=== PATIENT | male | born 1965 | race Caucasian/White ===

== ENCOUNTER 2019-10-25 11:29 | Emergency (ER) | payer MEDICAID, SELFPAY ==
[~2019-10-25] VITALS: Ht 177.8 cm; Wt 93.2 kg
[2019-10-25] MEDS ORDERED: BOOSTRIX/ADACEL VACCINE (DIPHTH/PERTUSS/ACELL/TETANUS) 0.5ML SYR IM ONE (12:00)
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
[2019-10-25] MEDS ORDERED: LIDOCAINE W/EPINEPHRINE 1% 20ML VIAL SC ONE (12:15)
[2019-10-25] MEDS ORDERED: BUPIVACAINE HCL 0.5% 10ML VIAL SC ONE (12:15)
[2019-10-25] MEDS ORDERED: NS 1,000 ML IV SCH (14:30)
[2019-10-25] MEDS ORDERED: ceFAZolin SOD 1 GM in D5W MINI-BAG PLUS 50 ML IV ONE (14:30)
[2019-10-25 17:49] VITALS: BP 164/80
--- NOTE | 2019-11-07 15:25 | ER ---
DATE: 10/25/2019 CHIEF COMPLAINT: Left distal forearm laceration. HISTORY OF PRESENT ILLNESS: This 54-year-old man, right-hand dominant, sustained a laceration on a circular saw on the dorsal of his forearm. He was reaching underneath transversely on the dorsum of the forearm. He is nothing by mouth since 6:30 in the morning, when he drank a soda. No previous injuries. He got a tetanus short in the emergency department. His last tetanus was about 25 years ago. MEDICAL HISTORY: None.. MEDICATIONS: None. ALLERGIES: No known drug allergies. SURGICAL HISTORY: Root canal. SOCIAL HISTORY: He is self-employed. Runs a margo. This happened at work, although he is self-employed. Does not smoke and does not intravenous drugs. PHYSICAL EXAMINATION: Shows a 54-year-old man. Vital signs are stable. He has a large, 3-1/2 inch long transverse laceration in the mid aspect of the left forearm. Hand is warm and well perfused. Normal sensation to median, radial, and ulnar nerves. Strong radial pulse. Forearm compartments are soft. This appears to be a very deep laceration involving the muscle bellies. His middle and ring finger are sitting in flexion. Unable to extend them or hold them against gravity. Index and 5th digit he is able to extend against gravity. He is unable to extend his wrist. He has extensor carpi ulnaris (ECU) function, but extensor carpi radialis longus (ECRL)/extensor carpi radialis brevis (ECRB) appear to be nonfunctional. He can flex and extend to the tip of his thumb but is not able to lift the thumb off the bed with the hand flat. Radiographs were reviewed. AP and lateral were performed. No obvious fracture. ASSESSMENT AND PLAN: This is a 54-year-old man with a complex laceration to the dorsal forearm with a circular saw. He likely lacerated the tendons and/or muscle belly to the middle and ring fingers. He also has a wrist drop. He could have lacerated the ECRL muscle belly or tendon as well as the posterior interosseous nerve given his difficulties with thumb extension and with slight ulnar deviation with wrist extension and quite weak in terms of its extension. He would benefit from irrigation, debridement, and likely multiple tendon repair. This would be more appropriately undertaken by a hand surgeon in a tertiary care center. He may have also sustained an injury to the posterior osseous nerve, and this may need nerve grafting or nerve repair, so this would be better done in a large center, such as in [place]. As such, I have asked the emergency department physician to consider transfer. In the meantime, we will place white gauze over the top of the wound in preparation for transfer, and he has already received tetanus. EMMANUEL
== END 2019-10-25 17:50 | disposition short-term general hospital (02) ==
LOC: M ED 11:29
DX: S56.322A Laceration of extensor or abductor muscles, fascia and tendons of left thumb at forearm level, initial encounter (principal); W27.0XXA Contact with workbench tool, initial encounter; Y92.099 Unspecified place in other non-institutional residence as the place of occurrence of the external cause; Y93.9 Activity, unspecified; Y99.9 Unspecified external cause status
CPT/HCPCS: 36415; 73090; 90471; 90715; 96361; 96365; 99284; J0690

== ENCOUNTER → 2020-01-15 | Outpatient (REF) | payer OTHER ==
[2020-01-15 12:28] LABS: ALBUMIN 3.9 GM/DL (3.2-5.2); ALT/SGPT 40 U/L (12-78); BILIRUBIN,TOTAL 0.5 MG/DL (0.2-1.0); BLOOD UREA NITROGEN 19 MG/DL (7-18); CALCIUM LEVEL 8.7 MG/DL (8.5-10.1); CARBON DIOXIDE LEVEL 29 MEQ/L (21-32); CHLORIDE LEVEL 104 MEQ/L (98-107); CHOLESTEROL LEVEL 276 MG/DL (<200); CREATININE FOR GFR 0.89 MG/DL (0.70-1.30); GLOMERULAR FILTRATION RATE > 60.0 (>56); GLUCOSE, FASTING 99 MG/DL (70-100); HDL CHOLESTEROL 50 MG/DL (>40); NON-HDL-C 226 MG/DL; POTASSIUM SERUM 4.4 MEQ/L (3.5-5.1); SODIUM LEVEL 136 MEQ/L (136-145); TOTAL PROTEIN 6.9 GM/DL (6.4-8.2); TRIGLYCERIDES LEVEL 408 MG/DL (<150)
== END ==
LOC: M SFHCCLAY 08:30
PROVIDERS: ATTEND Family Medicine
DX: B35.1 Tinea unguium (principal); R03.0 Elevated blood-pressure reading, without diagnosis of hypertension; Z13.220 Encounter for screening for lipoid disorders

== ENCOUNTER → 2020-03-20 | Outpatient (REF) | payer OTHER ==
[2020-03-20 16:29] LABS: ALBUMIN 4.1 GM/DL (3.2-5.2); ALT/SGPT 34 U/L (12-78); BILIRUBIN,DIRECT < 0.1 MG/DL (0.0-0.2); BILIRUBIN,TOTAL 0.4 MG/DL (0.2-1.0)
== END ==
LOC: M SFHCCLAY 10:06
PROVIDERS: ATTEND Family Medicine
DX: B35.1 Tinea unguium (principal)

== ENCOUNTER → 2022-12-01 | Outpatient (REF) | payer OTHER ==
[2022-12-01 12:08] LABS: BASO # 0.1 10^3/uL (0.0-0.2); EOS # 0.1 10^3/uL (0.0-0.5); EOS % 1.9 % (0.0-3.0); HEMATOCRIT 44.5 % (42.0-52.0); HEMOGLOBIN 14.2 g/dl (13.5-17.5); LYMPH # 2.1 10^3/uL (1.5-5.0); LYMPH % 40.6 % (24.0-44.0); MEAN CORPUSCULAR HEMOGLOBIN 28.2 pg (27.0-33.0); MEAN CORPUSCULAR HGB CONC 31.9 g/dl (32.0-36.5); MEAN CORPUSCULAR VOLUME 88.3 fl (80.0-96.0); MONO # 0.4 10^3/uL (0.0-0.8); MONO % 7.8 % (2.0-8.0); NEUTROPHILS # 2.5 10^3/uL (1.5-8.5); NEUTROPHILS % 48.3 % (36.0-66.0); PLATELET COUNT, AUTOMATED 225 10^3/uL (150-450); RED BLOOD COUNT 5.04 10^6/uL (4.30-6.10); WHITE BLOOD COUNT 5.2 10^3/uL (4.0-10.0)
[2022-12-01 12:48] LABS: ALBUMIN 3.9 G/DL (3.2-5.2); ALKALINE PHOSPHATASE 66 U/L (46-116); ALT/SGPT 30 U/L (7.0-40); AST/SGOT 23 U/L (<34); BILIRUBIN,TOTAL 0.8 MG/DL (0.3-1.2); BLOOD UREA NITROGEN 20 MG/DL (9-23); CALCIUM LEVEL 9.1 MG/DL (8.5-10.1); CARBON DIOXIDE LEVEL 29 MMOL/L (20-31); CHLORIDE LEVEL 106 MMOL/L (98-107); CHOLESTEROL LEVEL 253 MG/DL (<200); CREATININE FOR GFR 0.84 MG/DL (0.70-1.30); FREE T4 1.23 NG/DL (0.89-1.76); GLOMERULAR FILTRATION RATE > 60.0 (>56); GLUCOSE, FASTING 101 MG/DL (60-100); HDL CHOLESTEROL 57.5 MG/DL (>40); LDL CHOLESTEROL 161.1 MG/DL (<100); NON-HDL-C 195.5 MG/DL; POTASSIUM SERUM 4.8 MMOL/L (3.5-5.1); SODIUM LEVEL 139 MMOL/L (136-145); THYROID STIMULATING HORMONE 1.552 uIU/ML (0.55-4.78); TOTAL PROTEIN 6.4 G/DL (5.7-8.2); TRIGLYCERIDES LEVEL 172 MG/DL (<150)
== END ==
LOC: M SFHCCLAY 08:42
PROVIDERS: ATTEND Nurse Practitioner Family
DX: E78.5 Hyperlipidemia, unspecified (principal); K21.9 Gastro-esophageal reflux disease without esophagitis; R07.89 Other chest pain; I48.91 Unspecified atrial fibrillation

== ENCOUNTER → 2023-06-07 | Outpatient (CLI) | payer OTHER | LOC: M PLAIMG 09:32 | PROVIDERS: ATTEND Nurse Practitioner Family | DX: I48.91 Unspecified atrial fibrillation (principal); I08.1 Rheumatic disorders of both mitral and tricuspid valves ==

== ENCOUNTER → 2023-06-29 | Outpatient (REF) | payer OTHER | LOC: M SFHCCLAY 08:25 | PROVIDERS: ATTEND Nurse Practitioner Family | DX: I48.91 Unspecified atrial fibrillation (principal); R07.89 Other chest pain; E78.5 Hyperlipidemia, unspecified; Z53.9 Procedure and treatment not carried out, unspecified reason ==

== ENCOUNTER → 2023-12-27 | Outpatient (CLI) | payer OTHER | LOC: M CARPUL 15:26 | PROVIDERS: ATTEND Internal Medicine Cardiovascular Disease | DX: R07.9 Chest pain, unspecified (principal); I48.91 Unspecified atrial fibrillation ==

== ENCOUNTER → 2024-01-02 | Outpatient (REF) | payer OTHER ==
[2024-01-02 12:38] LABS: ALBUMIN 3.9 G/DL (3.2-5.2); BILIRUBIN,DIRECT 0.3 MG/DL (<0.4); BILIRUBIN,TOTAL 0.8 MG/DL (0.3-1.2); CHOLESTEROL RISK RATIO 2.74 (<5); HDL CHOLESTEROL 68.4 MG/DL (>40); LDL CHOLESTEROL 109.8 MG/DL (<100); NON-HDL-C 119.6 MG/DL; TOTAL PROTEIN 6.8 G/DL (5.7-8.2)
== END ==
LOC: M PLALAB 11:29
PROVIDERS: ATTEND Internal Medicine Cardiovascular Disease
DX: E78.00 Pure hypercholesterolemia, unspecified (principal); I51.7 Cardiomegaly; I27.81 Cor pulmonale (chronic); R06.02 Shortness of breath

== ENCOUNTER → 2024-11-12 | Outpatient (CLI) | payer OTHER | LOC: M WHC 14:17 | PROVIDERS: ATTEND Physician Assistant | DX: D23.9 Other benign neoplasm of skin, unspecified (principal) ==